=== PATIENT | female | born 1940 | race Caucasian/White ===

== ENCOUNTER 2016-10-06 17:51 | Emergency (ER) | payer MEDICARE, BC ==
[~2016-10-06] VITALS: Ht 160 cm; Wt 90.7 kg
[~2016-10-06 17:51] MED LIST: GABA300C PO; LISI-603 PO; SIMV80TA5 PO; TRAM50TA2 PO; TRIA1TAB5 PO
[2016-10-06] MEDS ORDERED: ESTR0.5T PO (18:06)
--- NOTE | 2016-10-06 18:25 | NUR ---
PT IS IN ROOM #2B. DR MONGE EVALUATED THE PT.
[2016-10-06] MEDS ORDERED: ONDANSETRON ODT 4 MG TAB.RAPDIS SL ONE (18:30)
[2016-10-06] MEDS ORDERED: IV NORMAL SALINE 1000 ML BAG IV ONE (18:30)
[2016-10-06] MEDS ORDERED: MINERAL OIL FLEET ENEMA 133 ML BOTTLE RC ONE ×2 (18:30→18:54)
[2016-10-06 18:48] LABS: BASOPHILS # (AUTO) 0.4 K/uL (0.0-8.0); BASOPHILS % (AUTO) 3.8 % (0.0-2.0); EOSINOPHILS # (AUTO) 0.2 K/uL (0.0-0.7); EOSINOPHILS % (AUTO) 1.6 % (0.0-7.0); HEMATOCRIT 42.5 % (37-47); HEMOGLOBIN 13.9 G/DL (12.0-16.0); LYMPHOCYTES # (AUTO) 1.6 K/UL (0.8-4.8); LYMPHOCYTES % (AUTO) 13.7 % (20.5-51.5); MEAN CORPUSCULAR HEMOGLOBIN 28.9 UUG (27.0-31.0); MEAN CORPUSCULAR HGB CONC 33 g/dL (32.0-37.0); MEAN CORPUSCULAR VOLUME 88.5 FL (81.0-99.0); MONOCYTES # (AUTO) 0.7 K/UL (0.1-1.30); MONOCYTES % (AUTO) 5.6 % (0.0-11.0); NEUTROPHILS # (AUTO) 8.8 K/UL (1.8-8.9); NEUTROPHILS % (AUTO) 75.3 % (38.5-71.5); PLATELET COUNT (AUTO) 323 K/UL (150-450); WHITE BLOOD COUNT (AUTO) 11.6 K/UL (4.0-11.2)
[2016-10-06] MEDS ORDERED: ONDANSETRON ODT 4 MG TAB.RAPDIS ONE (18:52)
[2016-10-06 18:54] LABS: CARBON DIOXIDE 28 mmol/L (21-32); CHLORIDE 99 mmol/L (98-107); CREATININE 1.3 mg/dL (0.6-1.3); GLUCOSE 117 mg/dL (74-106); POTASSIUM 3.5 mmol/L (3.5-5.1); UREA NITROGEN, BLOOD 21 mg/dL (7-18)
[2016-10-06 18:59] LABS: BAND % (MANUAL) 2 % (0-10); EOSINOPHILS % (MANUAL) 1 % (0-8); LYMPHOCYTES % (MANUAL) 12 % (20-40); MONOCYTES % (MANUAL) 7 % (2-10); NEUTROPHILS % (MANUAL) 78 % (42-75)
[2016-10-06 19:00] LABS: ALANINE AMINOTRANSFERASE 20 U/L (14-59); ALKALINE PHOSPHATASE 106 U/L (50-136); ASPARTATE AMINOTRANSFERASE 24 U/L (15-37); BILIRUBIN,DIRECT 0.1 mg/dL (0.0-0.2); BILIRUBIN,TOTAL 0.4 mg/dL (0.2-1.0); LIPASE 192 U/L (73-393); TOTAL PROTEIN, SERUM 8.1 g/dL (6.4-8.2)
[2016-10-06] MEDS ORDERED: HYDROMORPHONE 1 MG/1 ML DISP.SYRIN IV ONE (19:00)
[2016-10-06] MEDS ORDERED: LIDOCAINE 2% (UROJET) 10 ML JELLY MM ONE ×2 (19:00→19:14)
[2016-10-06] MEDS ORDERED: HYDROMORPHONE 1 MG/1 ML DISP.SYRIN ONE (19:14)
--- NOTE | 2016-10-06 19:29 | NUR ---
PATIENT HAD BM AT THIS TIME.
--- NOTE | 2016-10-06 19:49 | NUR ---
Patient discharged to home in stable conditon. Written and verbal after care instructions given. Patient verbalizes understanding of instructions.
[2016-10-06 19:50] VITALS: BP 120/76
== END 2016-10-06 19:50 | disposition home or self-care (01) ==
LOC: ER 17:54
DX: K56.41 Fecal impaction (principal); I10 Essential (primary) hypertension; Z88.8 Allergy status to other drugs, medicaments and biological substances; Z90.710 Acquired absence of both cervix and uterus
CPT/HCPCS: 36415; 83690; 85025; A4663; J1170; J7030; Q0162

== ENCOUNTER 2021-09-15 11:47 | Emergency (ER) | payer MEDICARE, BC ==
[~2021-09-15] VITALS: Ht 160 cm; Wt 88.5 kg
[~2021-09-15 11:47] MED LIST changes: +ESTR0.5T PO; -LISI-603 PO; +LISI20TA30 PO; -SIMV80TA5 PO; +SIMV80TA90 PO
[2021-09-15] MEDS ORDERED: TEMA15CA PO (12:21)
[2021-09-15] MEDS ORDERED: TRIA1CAP6 PO (12:21)
[2021-09-15 12:32] LABS: HEMATOCRIT 41.8 % (31.2-41.9); MEAN CORPUSCULAR HEMOGLOBIN 30.5 uug (24.7-32.8); MEAN CORPUSCULAR VOLUME 89.3 fL (75.5-95.3); PLATELET COUNT (AUTO) 361 K/uL (179-408)
[2021-09-15 12:57] LABS: ALANINE AMINOTRANSFERASE 24 U/L (14-59); ALKALINE PHOSPHATASE 124 U/L (50-136); ASPARTATE AMINOTRANSFERASE 32 U/L (15-37); BILIRUBIN,DIRECT 0.2 mg/dL (0.0-0.2); CARBON DIOXIDE 26 mmol/L (21-32); CHLORIDE 101 mmol/L (98-107); CREATININE 1.2 mg/dL (0.6-1.3); GLUCOSE 118 mg/dL (74-106); POTASSIUM 3.9 mmol/L (3.5-5.1); TOTAL PROTEIN, SERUM 7.8 g/dL (6.4-8.2); UREA NITROGEN, BLOOD 18 mg/dL (7-18)
[2021-09-15 13:00] LABS: THYROID STIMULATING HORMONE 0.966 mIU/mL (0.358-3.740)
[2021-09-15 13:15] LABS: *BILIRUBIN,URIN NEGATIVE (NEGATIVE); *BLOOD, URINE 1+ (NEGATIVE); *CLARITY,URINE CLEAR (CLEAR); *COLOR,URINE YELLOW (YELLOW); *KETONES,URINE TRACE (NEGATIVE); *UROBILINOGEN,URINE 0.2 E.U./dl (NORMAL); LEUKOCYTE ESTERASE ,URINE TRACE (NEGATIVE); NITRITE, URINE POSITIVE (NEGATIVE); UGLUCOSE NEGATIVE (NEGATIVE)
[2021-09-15 13:55] LABS: ACETAMINOPHEN < 2.0 ug/mL (10-30)
[2021-09-15 14:27] LABS: ETHANOL < 3 MG/DL (0-0)
[2021-09-15] MEDS ORDERED: LORAZEPAM 0.5 MG TABLET PO ONE (14:30)
[2021-09-15] MEDS ORDERED: IV NORMAL SALINE 1000 ML BAG IV ONE (14:30)
[2021-09-15] MEDS ORDERED: LORAZEPAM 0.5 MG TABLET ONE (14:44)
[2021-09-15] MEDS ORDERED: CEphaleXIN 500 MG CAPSULE ONE (14:54)
[2021-09-15] MEDS ORDERED: CEphaleXIN 500 MG CAPSULE PO ONE (15:00)
--- NOTE | 2021-09-15 15:19 | NUR ---
Social work consult was requested for discharge planning. Patient is 81-year-old white female admitted to the hospital for a fall. Upon social worker school assessment, patient is alert and oriented X4. Patient presents with anxious mood and full range of affect. Patient presents with coherent, and goal directed thought process. Patient presents with good judgement and insight. Patient lives in an apartment on the first floor at [address] [place] [id number] SW explored patients support system. Patients primary instrument person is her daughter, Camilla ([phone]) and they have a good relationship. Patient has a walker at home and is not currently driving. SW provided emotional support, validation, and coping strategies. SW spoke with the patients [id number], Tessie ([phone]) and Tessie ([phone]) stated that she will be driving the patient home at discharge. Patients daughter, Camilla ([phone]) stated that she has arranged for a caregiver, Timo, to be at the patients home [place].
[2021-09-15] MEDS ORDERED: CEPH500T PO (15:34)
--- NOTE | 2021-09-15 16:05 | NUR ---
Pt IV infused about 400 ml before pt discharged, does not want to finish fluid.
--- NOTE | 2021-09-15 16:20 | NUR ---
Removed IV intact, site okay, bandaged. Gave pt RX and d/c instructions, pt verbalized understanding.
[2021-09-15 20:29] LABS: BACTERIA,URINE MANY /HPF (NONE SEEN); SQUAMOUS EPITHELIAL CELL,UR MODERATE /HPF (NONE SEEN)
== END 2021-09-15 16:45 | disposition home or self-care (01) ==
LOC: ER 11:47
DX: R53.1 Weakness (principal); N39.0 Urinary tract infection, site not specified; S09.90XA Unspecified injury of head, initial encounter; W18.39XA Other fall on same level, initial encounter; Y92.89 Other specified places as the place of occurrence of the external cause; R94.31 Abnormal electrocardiogram [ECG] [EKG]; R79.89 Other specified abnormal findings of blood chemistry; I10 Essential (primary) hypertension; E78.00 Pure hypercholesterolemia, unspecified; Z96.649 Presence of unspecified artificial hip joint; Z96.652 Presence of left artificial knee joint; Z98.1 Arthrodesis status; Z79.899 Other long term (current) drug therapy
CPT/HCPCS: 36415; 70450; 71045; 72125; 80048; 80076; 80179; 80299; 80320; 81001; 82550 ×2; 84443; 84484 ×2; 85025; 87086; 93005; 96360; 99285; J7040; A4663; G0480